=== PATIENT | female | born 1965 | race Two or more races ===

== ENCOUNTER 2016-12-12 07:19 | Day surgery (SDC) | payer BC ==
[2016-12-07 12:34] VITALS: BMI 34.2
[~2016-12-12 07:19] MED LIST: DEXAMETHASONE SOD PHOSPHATE 10 MG/ML 1 ML VIAL IV ONE; DEXAMETHASONE SOD PHOSPHATE 4 MG/ML 1 ML VIAL IV ONE; FAMOTIDINE 20 MG/2 ML VIAL IV ONE; LACTATED RINGERS 1,000 ML IV SCH; LIDOCAINE 1% 20 ML VIAL (10MG/ML) FOR IV START INTRADERMA PRN; MIDAZOLAM 2 MG/2 ML VIAL IV PRN; ONDANSETRON 4 MG/2 ML VIAL IVP ONE; Pre Op ABX Message 1 EACH MISC MISCELLANE ONE; SCOPOLAMINE 1.5MG/72HR PATCH TRANSDERM ONE
[2016-12-12 08:13] VITALS: RESP 16
[2016-12-12 08:33] LABS: Glucose,Whole Blood 368 mg/dL (75-99)
[2016-12-12] MEDS ORDERED: INSULIN LISPRO (humaLOG) 300 UNIT/3 ML VIAL SQ ONE (08:37)
[2016-12-12] MEDS ORDERED: SUCCINYLCHOLINE CHLORIDE VIAL 200 MG/10 ML VIAL IV ONE (09:12)
[2016-12-12] MEDS ORDERED: PROPOFOL 10 MG/ML 20 ML VIAL IV ONE (09:12)
[2016-12-12] MEDS ORDERED: ePHEDrine 50 MG/ML 1 ML AMP ONE (09:12)
[2016-12-12] MEDS ORDERED: DEXAMETHASONE SOD PHOS (MDV) 100 MG/10 ML VIAL ONE (09:12)
[2016-12-12] MEDS ORDERED: LIDOCAINE 1% INJ 10MG/ML (20 ML MDV) ONE (09:12)
[2016-12-12] MEDS ORDERED: MIDAZOLAM 2 MG/2 ML VIAL ONE (09:12)
[2016-12-12] MEDS ORDERED: fentaNYL (PF) 50 MCG/ML 2 ML AMP ONE (09:12)
--- NOTE | 2016-12-12 09:47 | P.OP ---
Date of Procedure: 12/12/16 Preoperative Diagnosis: Right tonsillar hypertrophy Postoperative Diagnosis: Same Procedure(s) Performed: Right tonsillectomy Implants: Anesthesia: ALMITA Surgeon: Alvaro Escalera Estimated Blood Loss (ml): 5 Pathology: other (Right tonsil) Condition: stable Disposition: PACU Indications for Procedure: This is a 51-year-old white female who has developed right tonsillar hypertrophy which is asymptomatic however clearly asymmetric. Computed tomography scan showed the right tonsillar asymmetry and did have some increased number of lymph nodes however none over 9.5 mm Operative Findings: Right tonsil diffusely enlarged at +3 ,left tonsil +1 Description of Procedure: The patient was brought in the operative suite and placed in a supine position. The patient underwent induction of general anesthesia with oral endotracheal intubation without difficulty. The patient was prepped and draped in usual aseptic fashion. The McIvor mouth gag was placed. The soft palate was palpated and no submucous cleft was noted. The right tonsil was grasped with a curved Allis clamp and dissected from the tonsillar fossa in a superior to inferior direction using both blunt and electrocautery dissection until the tonsil was removed. Once the tonsils removed hemostasis was gained with suction cautery. Once hemostasis was obtained the left tonsil was examined visually and palpably and was unremarkable and therefore was left intact. The patient was then suctioned in oral gastric fashion. The patient was then allowed to emerge from general anesthesia having tolerated procedure well was extended the operating suite and transferred to postop recovery area in satisfactory condition.
[2016-12-12 10:05] VITALS: TEMP 98.4
[2016-12-12] MEDS: HYDROmorphone 1 MG/ML 1 ML SYRINGE IVP PRN ×2 (10:09→10:20)
[2016-12-12] MEDS ORDERED: ONDANSETRON 4 MG/2 ML VIAL IVP ONE (10:14)
[2016-12-12 10:49] LABS: Glucose,Whole Blood 342 mg/dL (75-99)
[2016-12-12] MEDS ORDERED: HYDROcodone/APAP 7.5-325MG 1 EACH TAB PO ONE (11:15)
[2016-12-12 11:35] VITALS: PULSE 65
[2016-12-12 12:10] VITALS: BP 95/59
== END 2016-12-12 12:25 | disposition home or self-care (01) ==
LOC: OR 07:19
PROVIDERS: ATTEND Otolaryngology
DX: J35.1 Hypertrophy of tonsils (principal); F17.200 Nicotine dependence, unspecified, uncomplicated; I25.10 Atherosclerotic heart disease of native coronary artery without angina pectoris; I10 Essential (primary) hypertension; Z95.5 Presence of coronary angioplasty implant and graft; I25.2 Old myocardial infarction; E78.5 Hyperlipidemia, unspecified; E11.9 Type 2 diabetes mellitus without complications; Z79.4 Long term (current) use of insulin; Z79.84 Long term (current) use of oral hypoglycemic drugs; Z79.02 Long term (current) use of antithrombotics/antiplatelets; Z79.82 Long term (current) use of aspirin; Z79.899 Other long term (current) drug therapy
CPT/HCPCS: 93005; 81025; 42826; J2250; J0330; J1100 ×2; J2405; J2001; J3010; J1170; J2704; 88304; 88341; 88342